=== PATIENT | female | born 1990 | race African-American/Black ===

== ENCOUNTER 2019-06-27 09:02 | Emergency (ER) | payer OTHER ==
[2019-06-27 09:21] VITALS: BP 135/71
--- NOTE | 2019-06-27 10:29 | UC ---
Respiratory Complaint HPI - HPI Summary HPI Summary: 28 yo female with HIV presents with CHRISTIANSEN and chills she has been taking antipyretics since the onset has been ill fo 4 days mild congestion at [place] last week was at a conference in close proximity to 20 people she requests ID referral for her HIV management as she recently moved here - History of Current Complaint Chief Complaint: UCGeneralIllness Stated Complaint: CHEST CONGESTION,HEADACHE,POSS FEVER Time Seen by Provider: 06/27/19 09:43 Hx Obtained From: Patient Hx Last Menstrual Period: Onset/Duration: Gradual Onset, Lasting Days Timing: Constant Severity Initially: Mild Severity Currently: Moderate Pain Intensity: 4 - CHRISTIANSEN Pain Scale Used: 0-10 Numeric Character: Cough: Nonproductive Associated Signs And Symptoms: Positive: Chills - +++, Nasal Congestion - Allergies/Home Medications Allergies/Adverse Reactions: Allergies Allergy/AdvReac Type Severity Reaction Status Date / Time No Known Allergies Allergy Verified 06/27/19 09:21 PMH/Surg Hx/FS Hx/Imm Hx Previously Healthy: Yes - HIV + - Surgical History Surgical History: None - Family History Known Family History: Positive: Hypertension - Social History Alcohol Use: None Substance Use Type: None Smoking Status (MU): Never Smoked Tobacco Review of Systems All Other Systems Reviewed And Are Negative: Yes Constitutional: Positive: Chills Skin: Positive: Negative Eyes: Positive: Negative ENT: Positive: Sinus Congestion Respiratory: Positive: Negative Cardiovascular: Positive: Negative Gastrointestinal: Positive: Negative Genitourinary: Positive: Negative Motor: Positive: Negative Neurovascular: Positive: Negative Musculoskeletal: Positive: Negative Neurological/Mental Status: Positive: Negative Psychological: Positive: Negative Physical Exam Triage Information Reviewed: Yes Appearance: Well-Appearing, No Pain Distress, Well-Nourished Vital Signs: Initial Vital Signs Temp 98.9 F 06/27/19 09:17 Pulse 82 06/27/19 09:17 Resp 20 06/27/19 09:17 BP 135/71 06/27/19 09:17 Pulse Ox 100 06/27/19 09:17 Vital Signs Reviewed: Yes Eyes: Positive: Conjunctiva Clear ENT: Positive: Hearing grossly normal, Nasal congestion. Negative: TM bulging, TM dull, TM red, Tonsillar swelling, Tonsillar exudate, Trismus, Muffled voice, Hoarse voice, Dental tenderness, Sinus tenderness, Uvula midline Dental Exam: Normal Neck: Positive: Supple, Nontender, No Lymphadenopathy Respiratory: Positive: Lungs clear, Normal breath sounds, No respiratory distress, No accessory muscle use Cardiovascular: Positive: RRR, No Murmur Musculoskeletal: Positive: ROM Intact, No Edema Neurological: Positive: Alert Psychological Exam: Normal Skin Exam: Normal Diagnostics - Laboratory Lab Results: influenza (-) Respiratory Course/Dx - Differential Dx/Diagnosis Provider Diagnosis: Viral syndrome Discharge ED - Sign-Out/Discharge Documenting (check all that apply): Patient Departure All imaging exams completed and their final reports reviewed: No Studies - Discharge Plan Condition: Stable Disposition: HOME Patient Education Materials: Viral Syndrome (ED) Referrals: Gabby DAVE,Cody Bruno [Medical Doctor] - 2 Weeks (please contact his office re. management of your HIV) Additional Instructions: COVID 19 test is pending The health department will be in touch with you See In-home Isolation hand out - Billing Disposition and Condition Condition: STABLE Disposition: Home
[2019-06-27 10:37] LABS: Influenza A Molecular Negative (Negative); Influenza B Molecular Negative (Negative)
== END 2019-06-27 11:15 | disposition home or self-care (01) ==
LOC: UCEAST 09:02
DX: B34.9 Viral infection, unspecified (principal); R51 Headache; R09.81 Nasal congestion; Z21 Asymptomatic human immunodeficiency virus [HIV] infection status
CPT/HCPCS: 99212; G0463; U0002